=== PATIENT | female | born 1995 | race Caucasian/White ===

== ENCOUNTER 2021-08-14 15:11 | Outpatient (RCR) | payer OTHER | END 2021-08-17 | disposition home or self-care (01) | LOC: WSOH | DX: S06.0X0D Concussion without loss of consciousness, subsequent encounter (principal); Y99.0 Civilian activity done for income or pay; F41.9 Anxiety disorder, unspecified; Z98.890 Other specified postprocedural states ==

== ENCOUNTER → 2021-10-23 | Outpatient (CLI) | payer OTHER | LOC: COL.RAD 12:10 | DX: R22.42 Localized swelling, mass and lump, left lower limb (principal) | CPT/HCPCS: A9575 ==

== ENCOUNTER 2021-11-13 12:40 | Outpatient (RCR) | payer OTHER | END 2021-11-16 | disposition home or self-care (01) | LOC: WSOH | DX: S06.0X0D Concussion without loss of consciousness, subsequent encounter (principal); F41.8 Other specified anxiety disorders; Z98.890 Other specified postprocedural states; Y99.0 Civilian activity done for income or pay ==

== ENCOUNTER 2021-12-18 09:41 | Outpatient (RCR) | payer OTHER | END 2022-01-17 | disposition home or self-care (01) | LOC: WSOH | DX: S06.0X0D Concussion without loss of consciousness, subsequent encounter (principal); Y99.0 Civilian activity done for income or pay; F41.8 Other specified anxiety disorders ==

== ENCOUNTER 2022-03-18 01:04 | Emergency (ER) | payer OTHER ==
[~2022-03-18] VITALS: Ht 172.7 cm; Wt 109.8 kg
[2022-03-18 01:07] VITALS: TEMP 97.1
[2022-03-18] MEDS ORDERED: AMOXICILLIN 8751 TAB PO (01:30)
[2022-03-18 01:38] VITALS: BP 154/78; PULSE 76
== END 2022-03-18 01:38 | disposition home or self-care (01) ==
LOC: COL.ER 01:04
DX: S61.432A Puncture wound without foreign body of left hand, initial encounter (principal); F17.210 Nicotine dependence, cigarettes, uncomplicated; Z88.1 Allergy status to other antibiotic agents; Z23 Encounter for immunization; W55.01XA Bitten by cat, initial encounter

== ENCOUNTER 2024-01-04 19:46 | Emergency (ER) | payer SELFPAY ==
[~2024-01-04] VITALS: Ht 172.7 cm; Wt 106.8 kg
[~2024-01-04 19:46] MED LIST: AMOXICILLIN 8751 TAB PO
[2024-01-04 19:54] VITALS: BP 130/85; PULSE 82; TEMP 98.3
[2024-01-04] MEDS ORDERED: Acetaminophen 500 MG TAB PO ONE (21:30)
[2024-01-04] MEDS ORDERED: Ibuprofen 400 MG TAB PO ONE (21:30)
== END 2024-01-04 22:58 | disposition home or self-care (01) ==
LOC: COL.ER 19:46
DX: S93.401A Sprain of unspecified ligament of right ankle, initial encounter (principal); Z91.040 Latex allergy status; W10.9XXA Fall (on) (from) unspecified stairs and steps, initial encounter; X50.1XXA Overexertion from prolonged static or awkward postures, initial encounter; Y93.01 Activity, walking, marching and hiking; Y92.039 Unspecified place in apartment as the place of occurrence of the external cause
CPT/HCPCS: L4386